=== PATIENT | female | born 1975 | race Caucasian/White ===

== ENCOUNTER 2016-12-01 14:56 | Emergency (ER) | payer OTHER, MEDICAID ==
[~2016-12-01] VITALS: Ht 152.4 cm; Wt 69.0 kg
[~2016-12-01 14:56] MED LIST: ALBU8I INH; SYMB160A INH
[2016-12-01 15:02] VITALS: BP 146/84; PULSE 89; RESP 16; TEMP 97.8; O2SAT 99
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
[2016-12-01] MEDS ORDERED: IBUPROFEN 800 MG TAB PO ONE (15:15)
[2016-12-01] MEDS ORDERED: METHOCARBAMOL 500 MG TAB PO ONE (15:15)
[2016-12-01] MEDS ORDERED: IBUP800T23 PO (15:49)
[2016-12-01] MEDS ORDERED: ROBA500T PO (15:49)
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
== END 2016-12-01 16:35 | disposition home or self-care (01) ==
LOC: NEPK 14:56
DX: S16.1XXA Strain of muscle, fascia and tendon at neck level, initial encounter (principal); S29.012A Strain of muscle and tendon of back wall of thorax, initial encounter; S46.819A Strain of other muscles, fascia and tendons at shoulder and upper arm level, unspecified arm, initial encounter; J45.909 Unspecified asthma, uncomplicated; V49.40XA Driver injured in collision with unspecified motor vehicles in traffic accident, initial encounter; Y93.9 Activity, unspecified; Y92.410 Unspecified street and highway as the place of occurrence of the external cause
CPT/HCPCS: 72040; 72072; 99283